=== PATIENT | female | born 1985 | race Caucasian/White ===

== ENCOUNTER 2018-12-26 22:39 | Emergency (ER) | payer SELFPAY ==
--- NOTE | 2018-12-26 23:17 | Emergency Department Record ---
History of Present Illness - General Chief Complaint: Animal Bite Stated Complaint: BAT BITE RT EAR Time Seen by Provider: 12/26/18 22:43 Source: Patient Mode of Arrival: Ambulatory Limitations: No limitations - History of Present Illness Initial Comments: The patient woke up this afternoon and felt she may have a bite willie on her R earlobe. She then later found a bat in the kitchen and is concerned she may have been bitten by the bat. She denies any other issues. Complaint: Possible animal exposure Onset/Timin -: Hour(s) Animal: Bat Description: Wild animal Mechanism: Bite Context: Possible exposure while asleep Associated Symptoms: None - Related Data Home Medications Medication Instructions Recorded Confirmed Last Taken Norgestimate-Ethinyl Estradiol 1 each PO DAILY 12/26/18 12/26/18 12/26/18 [Estarylla 0.25-0.035 mg Tablet] Allergies Allergy/AdvReac Type Severity Reaction Status Date / Time Sulfa (Sulfonamide Allergy Mild hives Verified 12/26/18 22:51 Antibiotics) Travel Screening - Travel/Exposure Within Last 30 Days Have you traveled within the last 30 days?: Yes Location Detail:: [place] - Travel/Exposure Within Last Year Have you traveled outside the [place] in the last year?: No - Additonal Travel Details Have you been exposed to anyone with a communicable illness?: No - Travel Symptoms Symptom Screening: None Review of Systems Constitutional: Denies: Chills, Fever Eyes: Denies: Eye discharge ENT: Denies: Congestion Respiratory: Denies: Cough, Dyspnea Past Medical History - SOCIAL HISTORY Smoking Status: Never smoker Alcohol Use: Rare Drug Use: None - RESPIRATORY Hx Respiratory Disorders: No - CARDIOVASCULAR Hx Cardio Disorders: No - NEURO Hx Neuro Disorders: No - GI Hx GI Disorders: No - Hx Genitourinary Disorders: No - ENDOCRINE Hx Endocrine Disorders: No - MUSCULOSKELETAL Hx Musculoskeletal Disorders: No - PSYCH Hx Psych Problems: No - HEMATOLOGY/ONCOLOGY Hx Hematology/Oncology Disorders: No Family Medical History Any Significant Family History?: No Physical Exam - General General Appearance: Alert, Oriented x3, Cooperative, No acute distress - Head Head exam: Atraumatic, Normocephalic, Normal inspection - Eye Eye exam: Normal appearance, PERRL - ENT Throat exam: Normal inspection. negative: Tonsillar erythema, Tonsillar exudate - Neck Neck exam: Normal inspection, Full ROM. negative: Tenderness - Respiratory Respiratory exam: Normal lung sounds bilaterally. negative: Respiratory distress - Cardiovascular Cardiovascular Exam: Regular rate, Normal rhythm, Normal heart sounds - GI/Abdominal GI/Abdominal exam: Soft, Normal bowel sounds. negative: Tenderness - Extremities Extremities exam: Normal inspection, Full ROM, Normal capillary refill. negative: Tenderness - Neurological Neurological exam: Alert. negative: Motor sensory deficit - Skin Type of lesion: abrasion (There is an abrasion to the R lower medial earlobe next to the face that could possibly be from a bite wound. It is not clear what the wound is from. There is no bleeding or swelling.) Course Vital Signs 12/26/18 22:46 Temperature 98.7 F Pulse Rate [ 76 Pulse Ox Probe] Respiratory 20 Rate Blood Pressure 146/97 [Left Arm] Pulse Ox 100 - Reevaluation(s) Reevaluation #1: I did discuss the issues with the patient and due to the possible bite (but unlikely) I did recommend rabies prophylaxis. The patient thought about it and is refusing the plan. She understands rabies is a fatal disease and would like to consult the health dept before starting the shots. She also understands she could if she refuses the shots and accepts that risk. 12/26/18 23:36 Disposition Disposition: Discharge Clinical Impression: Exposure to bat without known bite Disposition: Home, Self-Care Condition: (2) Stable Instructions: Animal Bite (ED) Additional Instructions: Please keep the area clean and please consult with the health dept in the morning for further recommendations. Please return to the ER if you change your mind about receiving the shots. Forms: Patient Portal Access Time of Disposition: 23:39 Quality - Quality Measures Quality Measures: N/A - Blood Pressure Screening View Details: Yes Does Patient Have Any of the Following: No Blood Pressure Classification: Hypertensive Reading Systolic Measurement: 158 Diastolic Measurement: 93 Screening for High Blood Pressure: < First Hypertensive BP, F/U Documented > [[id number]] First Hypertensive Follow-up Interventions: Referral to alternative/primary care provider.
== END 2018-12-26 23:50 | disposition home or self-care (01) ==
LOC: ER 22:39
DX: Z20.3 Contact with and (suspected) exposure to rabies (principal)
CPT/HCPCS: 99282